=== PATIENT | male | born 1985 | race Caucasian/White ===

== ENCOUNTER 2016-07-24 16:56 | Emergency (ER) | payer SELFPAY ==
--- NOTE | 2016-07-24 16:59 | PDOC ---
Sore Throat/Dental Pain HPI - General Chief Complaint: Nasal/Mouth Problem /Injury Stated Complaint: FACIAL SWELLING, DENTAL PAIN Date Seen by Provider: 07/24/16 Time Seen by Provider: 16:59 Source: POSITIVE: Patient Exam Limitations: POSITIVE: No limitations - History of Present Illness Initial Comments: 3 days pain to right lower tooth. Took ibuprofen at about 2pm, fell asleep, and when he woke up, there was increased swelling to the right side of his jaw. He has no fevers, no nausea, no difficulty breathing, no swelling to his tongue or airway. He broke a lower tooth on that side a few weeks ago. - Patient Home Medications Home Medications: Home Medications Clindamycin HCl 300 mg PO TID #30 capsule 07/24/16 Hydrocodone/Acetaminophen [[place] 5-325 Tablet] 1 tab PO Q4H PRN #16 tab Ibuprofen 800 mg PO QID PRN 07/24/16 - Patient Allergies Allergies/Adverse Reactions: Allergies Allergy/AdvReac Type Severity Reaction Status Date / Time No Known Allergies Allergy Verified 07/24/16 16:58 Past Medical History - heen HEENT History: Denies History Cardiovascular History: Denies History Respiratory History: Denies History Gastrointestinal History: Denies History Genitourinary History: Denies History Endocrine History: Denies History Musculoskeletal History: Other (please comment) Prosthesis or Implant: No Additional Musculoskeletal History: Hx of Right Forearm foreign body removal Neurological History: Denies History Blood Disorders: Denies History Psychiatric History: Depression, Anixety Disorders History of Sexually Transmitted Diseases: No Cancer History: Denies History History of MDRO: No History of Other Communicable Diseases: No Alcohol Use: Sober Substance Use Type: Marijuana Previous Surgical History: No Type / Date of Surgery: RIGHT KNEE SURGERY. FB REMOVAL RIGHT FOREARM Significant Family History: No pertinent family hx Past Medical History Reviewed: Reviewed - No Changes ROS - Limitations ROS Limitations: No Limitations Constitution: REPORTS: Denies Symptoms Cardiovascular: REPORTS: Denies Cardiac Symptoms Respiratory: REPORTS: Denies Resp Symptoms Neurological: REPORTS: Denies Neuro Symptoms Gastrointestinal: REPORTS: Denies GI Symptoms Endocrine: REPORTS: Denies Symptoms Musculoskeletal: REPORTS: Denies MS Symptoms ENT: REPORTS: Dental Pain Lympathic: REPORTS: Denies Lympathic Symptoms Immunologic: POSITIVE: Denies Symptoms Sore Throat/Dental Pain Exam - General Appearance General Appearance: REPORTS: Alert, Cooperative, No Acute Distress - HEENT Head / Face: POSITIVE: Other (swelling and induration to right lower jaw. molars on right mandible are decayed with erythema to the gingiva. No fluctuance. swelling does not extend into the sublingual, submandibular space. no trismus. pt is controlling his secretions) Eyes: POSITIVE: Inspection Normal, PERRL, EOM's Intact Ears: POSITIVE: Ears Normal Inspection Oropharynx: POSITIVE: Airway Intact Neck: POSITIVE: Supple - Respiratory Respiratory: REPORTS: No Respiratory Distress, Breath Sounds Normal - Cardiovascular Cardiovascular: REPORTS: Regular Rate and Rhythm, Heart Sounds Normal Peripheral Pulses: Radial (R): 2+, Radial (L): 2+ - Abdomen Abdomen: Soft: (All Quadrants), Denies Tenderness: (All Quadrants) - Extremities Extremity: Non-Tender: (All Extremities), Normal ROM: (All Extremities) - Skin Skin: REPORTS: Intact, Warm, Dry - Neurological / Psychological Neurological: POSITIVE: Affect Apporpriate, Oriented X3 Sore Throat/Dental Progress - Patient's Progress MDM / ED Course: Malcolm is a 31 year old man coming in today with a dental infection to his right mandibular 1st molar. No airway issues. We will give him a prescription for a course of clindamycin, norco for breakthrough pain, and strong return precautions to come back if he is no better. Patient Care Time - Estimated PCT Patient Care Time (In Minutes): 10 Vital Signs - Recent Vital Signs Vital Signs: Vital Signs (Last 8 hours) Temp Pulse Resp BP Pulse Ox 07/24/16 16:57 97.4 F 65 18 127/90 96 Discharge Clinical Impression: Dental abscess, Dental caries Discharge Disposition: Discharged to Home Condition: Fair Prescriptions / Orders: Clindamycin HCl 300 mg PO TID #30 capsule Hydrocodone/Acetaminophen [[place] 5-325 Tablet] 1 tab PO Q4H PRN #16 tab PRN Reason: Breakthrough Pain Patient Instructions Given at Discharge: Dental Abscess (ED) Additional Instructions: Take 800 mg ibuprofen 3 times per day. Take the norco for pain as needed on top of that. Take the clindamycin as prescribed. come back if you are not any better in 4-5 days.
[2016-07-24 17:06] VITALS: RESP 18; TEMP 97.4
== END 2016-07-24 17:18 | disposition home or self-care (01) ==
LOC: ER 16:56
DX: K04.7 Periapical abscess without sinus (principal)
CPT/HCPCS: 99282